=== PATIENT | male | born 1960 | race Caucasian/White ===

== ENCOUNTER → 2018-08-01 08:56 | Outpatient (CLI) | payer BC, SELFPAY ==
[2018-08-01 09:43] LABS: Hemoglobin A1C 5.5 % (0.0-7.0)
[2018-08-01 09:44] LABS: Basophils % 0.7 % (0.1-2.0); Eosinophils # 0.3 K/mm3 (0.0-0.4); Eosinophils % 6.7 % (0.1-12.0); Hematocrit 43.8 % (42.0-52.0); Hemoglobin 14.7 g/dL (14.1-18.0); Lymphocytes # 1.5 K/mm3 (0.7-4.5); Lymphocytes % 29.4 K/mm3 (10-50); Mean Corpuscular HGB Conc 33.5 g/dL (31.8-35.4); Mean Corpuscular Hemoglobin 29.4 pg (27.0-31.2); Mean Corpuscular Volume 87.8 fl (80-94); Mean Platelet Volume 6.9 fl (7.4-10.4); Monocytes # 0.4 K/mm3 (0.1-1.0); Monocytes % 6.9 % (1.7-9.3); Neutrophils # 2.8 K/mm3 (1.8-7.8); Neutrophils % 56.3 % (37.0-80.0); Platelet Count 188 K/mm3 (142-424); Red Blood Count 4.99 M/mm3 (4.60-6.20); Red Cell Distribution Width 12.8 % (11.5-17.5)
[2018-08-01 10:52] LABS: Alanine Aminotransferase 30 U/L (12-78); Albumin/Globulin Ratio 1.3 (1.1-1.8); Alkaline Phosphatase 63 U/L (46-116); Anion Gap 10.3 mEq/L (5-15); Aspartate Amino Transferase 18 U/L (15-37); Bilirubin,Total 1.2 mg/dL (0.2-1.0); Blood Urea Nitrogen 13 mg/dL (7-18); Carbon Dioxide 29 mmol/L (21.0-32.0); Chloride 106 mmol/L (98-107); Cholesterol 210 mg/dL (140-200); Creatinine,Serum 1.01 mg/dL (0.70-1.30); Estimated Glomerular Filt Rate 76 ml/min (>60); GFR (African American) 92 ML/MIN (>60); Glucose 98 mg/dL (74-106); HDL Cholesterol 53 mg/dL (27-67); LDL Cholesterol 139 mg/dL (0-130); Potassium 4.3 mmoL/L (3.5-5.1); Prostate Specific Ag Screen 1.4 ng/mL (0.0-4.0); Sodium 141 mmol/L (136-145); Thyroid Stimulating Hormone 1.32 uIU/ml (0.358-3.740); Triglycerides 92 mg/dL (30-200); VLDL Cholesterol 18 mg/dL (0-40)
[2018-08-02 19:09] LABS: Testosterone,Total 366 ng/dL (264-916); Vitamin B12 1150 pg/mL (232-1245)
[2018-08-04 15:25] LABS: Vitamin D 25 Hydroxy 30.7 ng/mL (30.0-100.0)
== END ==
PROVIDERS: PCP Internal Medicine Adolescent Medicine; Visit Provider Nurse Practitioner Family
DX: Z00.00 Encounter for general adult medical examination without abnormal findings (principal); I10 Essential (primary) hypertension; R53.81 Other malaise; E01.0 Iodine-deficiency related diffuse (endemic) goiter; E04.1 Nontoxic single thyroid nodule
CPT/HCPCS: 36415; 80053; 80061; 82607; 82652; 83036; 84403; 84443; 85025; G0103

== ENCOUNTER → 2018-08-11 15:21 | Outpatient (CLI) | payer BC, SELFPAY ==
--- NOTE | 2018-08-11 15:28 | US_ITS ---
US thyroid HISTORY: Follow-up thyroid nodule ITS.REASON: THYROID NODULE ORDERING PHYSICIAN: Alondra Lopez PATIENT AGE: 57 years Comparison: 07/22/2017 FINDINGS: Right lobe: 4.2 x 1.7 x 1.8 cm There is a 4.5 x 3 mm nodule along the posterior aspect of the right lobe of the thyroid gland not significant changed. In the lower pole there is a 3 mm hypoechoic nodule not readily apparent previously. An additional 4 mm hypoechoic nodules present superiorly not readily apparent on the previous exam. Left lobe: 4.7 x 1.4 x 1.7 cm. Homogeneous echogenicity IMPRESSION: Mildly enlarged thyroid gland with 3 small nodules of the right lobe which have low level of suspicion for malignancy. 2 of the nodules are however new therefore, recommend 6 month follow-up to confirm short-term stability
== END ==
PROVIDERS: Family Provider Internal Medicine Adolescent Medicine; PCP Internal Medicine Adolescent Medicine; Visit Provider Nurse Practitioner Family
DX: E04.1 Nontoxic single thyroid nodule (principal)
CPT/HCPCS: 76536

== ENCOUNTER → 2018-08-17 16:36 | Outpatient (CLI) | payer BC, SELFPAY ==
[2018-08-17 18:40] LABS: T4 (Thyroxine) 7.9 ug/dl (4.7-13.3); Thyroid Stimulating Hormone 1.19 uIU/ml (0.358-3.740); Triiodothryronine (T3) Uptake 38 % (31-39)
[2018-08-21 18:26] LABS: Thyroid Peroxidase Antibodies 11 IU/mL (0-34)
[2018-08-21 18:32] LABS: Calcitonin <2.0 pg/mL (0.0-8.4); Thyroid Stimulating Immunoglob <0.10 IU/L (0.00-0.55)
== END ==
PROVIDERS: Family Provider Internal Medicine Adolescent Medicine; PCP Internal Medicine Adolescent Medicine; Visit Provider Otolaryngology
DX: E04.9 Nontoxic goiter, unspecified (principal)
CPT/HCPCS: 36415; 82308; 84436; 84443; 84445; 84479; 86376

== ENCOUNTER → 2019-03-17 15:18 | Outpatient (CLI) | payer BC, SELFPAY ==
--- NOTE | 2019-03-17 15:22 | US_ITS ---
US thyroid HISTORY: Follow-up thyroid nodules ITS.REASON: thyroid nodules ORDERING PHYSICIAN: Edd Lee MD PATIENT AGE: 58 years Comparison: 08/11/2018 FINDINGS: Right lobe is 3.9 x 1.6 x 1.4 cm. The left lobe is 4.5 x 1.4 x 1.4 cm. The isthmus is unremarkable. There is a hypoechoic nodule along the posterior aspect of the right lobe at 5 mm unchanged. An additional 3 mm hypoechoic nodule is present in the lower pole unchanged. Previously there was a isoechoic nodule superiorly on the right not identified on today's exam Left lobe has an unremarkable appearance. IMPRESSION:. There are small nodules on the right which are unchanged. There is low level of suspicion for malignancy.
== END ==
PROVIDERS: PCP Internal Medicine Adolescent Medicine; Visit Provider Otolaryngology
DX: E04.9 Nontoxic goiter, unspecified (principal)
CPT/HCPCS: 76536

== ENCOUNTER → 2020-01-01 09:00 | Outpatient (CLI) | payer BC, SELFPAY ==
[2020-01-01 09:29] LABS: Basophils # 0.1 K/mm3 (0-0.2); Basophils % 0.9 % (0.1-2.0); Eosinophils # 0.4 K/mm3 (0.0-0.4); Eosinophils % 7.6 % (0.1-12.0); Hematocrit 42.4 % (42.0-52.0); Hemoglobin 13.9 g/dL (14.1-18.0); Lymphocytes # 1.7 K/mm3 (0.7-4.5); Mean Corpuscular HGB Conc 32.8 g/dL (31.8-35.4); Mean Corpuscular Hemoglobin 28.4 pg (27.0-31.2); Mean Corpuscular Volume 86.6 fl (80-94); Monocytes # 0.4 K/mm3 (0.1-1.0); Monocytes % 6.9 % (1.7-9.3); Neutrophils # 2.6 K/mm3 (1.8-7.8); Neutrophils % 50.6 % (37.0-80.0); Platelet Count 179 K/mm3 (142-424); Red Cell Distribution Width 12.9 % (11.5-17.5); White Blood Count 5.1 K/mm3 (4.8-10.8)
[2020-01-01 10:02] LABS: Alanine Aminotransferase 23 U/L (12-78); Albumin Level 3.8 gm/dL (3.4-5.0); Albumin/Globulin Ratio 1.5 (1.1-1.8); Alkaline Phosphatase 57 U/L (46-116); Anion Gap 12.2 mEq/L (5-15); Aspartate Amino Transferase 15 U/L (15-37); Bilirubin,Total 1.2 mg/dL (0.2-1.0); Blood Urea Nitrogen 17 mg/dL (7-18); Calcium 8.5 mg/dL (8.5-10.1); Carbon Dioxide 28 mmol/L (21.0-32.0); Chloride 106 mmol/L (98-107); Chol/HDL Ratio 4.9 (1-3.5); Cholesterol 200 mg/dL (140-200); Creatinine,Serum 0.95 mg/dL (0.70-1.30); Estimated Glomerular Filt Rate 81 ml/min (>60); Free Thyroxine Index 1.9 ug/dL (5.93-13.13); GFR (African American) 99 ML/MIN (>60); Globulin 2.5 gm/dl (1.3-3.2); Glucose 95 mg/dL (74-106); HDL Cholesterol 41 mg/dL (27-67); LDL Cholesterol 137 mg/dL (0-130); Potassium 4.2 mmoL/L (3.5-5.1); Sodium 142 mmol/L (136-145); T4 (Thyroxine) 5.2 ug/dl (4.7-13.3); Total Protein,Serum 6.3 gm/dL (6.4-8.2); Triglycerides 109 mg/dL (30-200); Triiodothryronine (T3) Uptake 37 % (31-39); VLDL Cholesterol 22 mg/dL (0-40)
== END ==
PROVIDERS: Visit Provider Internal Medicine Adolescent Medicine
DX: E78.5 Hyperlipidemia, unspecified (principal); E04.1 Nontoxic single thyroid nodule
CPT/HCPCS: 36415; 80053; 80061; 84436; 84443; 84479; 85025

== ENCOUNTER → 2021-02-20 13:38 | Outpatient (CLI) | payer BC, SELFPAY | PROVIDERS: PCP Internal Medicine Adolescent Medicine; Visit Provider Internal Medicine Adolescent Medicine | DX: G47.33 Obstructive sleep apnea (adult) (pediatric) (principal); R06.83 Snoring | CPT/HCPCS: G0399 ==

== ENCOUNTER → 2021-08-09 10:00 | Outpatient (CLI) | payer BC, SELFPAY ==
[2021-08-09 10:12] LABS: Basophils # 0.1 K/mm3 (0-0.2); Basophils % 1.2 % (0.1-2.0); Eosinophils # 0.4 K/mm3 (0.0-0.4); Eosinophils % 6.7 % (0.1-12.0); Hematocrit 46.2 % (42.0-52.0); Hemoglobin 15.5 g/dL (14.1-18.0); Lymphocytes % 30.7 % (10-50); Mean Corpuscular HGB Conc 33.5 g/dL (31.8-35.4); Mean Corpuscular Volume 89.5 fl (80-94); Monocytes # 0.6 K/mm3 (0.1-1.0); Monocytes % 8.4 % (1.7-9.3); Neutrophils # 3.5 K/mm3 (1.8-7.8); Platelet Count 222 K/mm3 (142-424); Red Blood Count 5.17 M/mm3 (4.60-6.20); Red Cell Distribution Width 13.8 % (11.5-17.5); White Blood Count 6.6 K/mm3 (4.8-10.8)
[2021-08-09 11:49] LABS: Alanine Aminotransferase 112 U/L (12-78); Albumin Level 4.5 g/dl (3.5-5.0); Albumin/Globulin Ratio 1.5 (1.1-1.8); Alkaline Phosphatase 70 U/L (38-126); Aspartate Amino Transferase 49 U/L (17-59); Bilirubin,Total 1.5 mg/dl (0.2-1.3); Blood Urea Nitrogen 13 mg/dl (9-20); Calcium 9.6 mg/dl (8.4-10.2); Carbon Dioxide 31 mmol/L (22.0-30.0); Chloride 101 mmol/L (98-107); Chol/HDL Ratio 4.8 (1-3.5); Cholesterol 174 mg/dl (140-200); Estimated Glomerular Filt Rate 86 ml/min (>60); GFR (African American) 105 ML/MIN (>60); Glucose 96 mg/dl (74-100); HDL Cholesterol 36 mg/dl (40-60); Sodium 141 mmol/L (136-145); Total Protein,Serum 7.5 g/dl (6.3-8.2); Triglycerides 220 mg/dl (30-150); VLDL Cholesterol 44 mg/dL (0-40)
[2021-08-09 12:00] LABS: Direct LDL Cholesterol 100.03 mg/dL (100-129)
[2021-08-09 12:06] LABS: Triiodothryronine (T3) Uptake 34 % (23.5-40.5)
[2021-08-09 12:07] LABS: Free Thyroxine Index 2.5 ug/dL (5.93-13.13); T4 (Thyroxine) 7.4 ug/dl (5.53-11.0)
[2021-08-09 12:20] LABS: Thyroid Stimulating Hormone 1.37 uIU/mL (0.465-4.68)
== END ==
PROVIDERS: Visit Provider Internal Medicine Adolescent Medicine
DX: E04.1 Nontoxic single thyroid nodule (principal); E78.5 Hyperlipidemia, unspecified
CPT/HCPCS: 36415; 80053; 80061; 84436; 84443; 84479; 85025

== ENCOUNTER → 2021-08-21 10:50 | Outpatient (CLI) | payer BC, SELFPAY ==
--- NOTE | 2021-08-21 10:59 | US_ITS ---
PROCEDURE: US THYROID CLINICAL INDICATION: THYROID NODULE COMPARISON: US THY US thyroid from 03/17/2019 FINDINGS: Right lobe: 3.8 x 1.6 x 2.5 cm. 3 mm cyst mid polar region. 5 mm hypoechoic nodule in the mid polar region posteriorly unchanged. Well-circumscribed no calcifications. 4 mm slightly hypoechoic nodule lower pole unchanged Left lobe: 4.5 x 1.4 x 1.6 cm. 3 mm hypoechoic nodule upper pole unchanged. 2 mm mixed nodule lower pole unchanged. Isthmus: Unremarkable Additional findings: IMPRESSION: Overall no change in the benign-appearing thyroid nodules. Dictated by: Buster Meneses MD 08/21/2021 17:42 Buster Meneses MD in [place] 08/21/2021 17:42
== END ==
PROVIDERS: PCP Internal Medicine Adolescent Medicine; Visit Provider Internal Medicine Adolescent Medicine
DX: E04.1 Nontoxic single thyroid nodule (principal)
CPT/HCPCS: 76536

== ENCOUNTER 2022-04-18 11:54 | Emergency (ER) | payer BC, SELFPAY ==
[2022-04-18 11:54] VITALS: BP 175/118; PULSE 68; RESP 16; TEMP 36.8; O2SAT 97; BMI 25.8
--- NOTE | 2022-04-18 11:57 | PC.NURSE ---
FELY Proctor at BS
--- NOTE | 2022-04-18 11:59 | PC.NURSE ---
ED MD at
--- NOTE | 2022-04-18 12:02 | XR_ITS ---
FINAL REPORT CLINICAL HISTORY: trauma, Kicked in nose by cow FINDINGS: NASAL BONES 3 views of the nasal bones were performed. There is a nondisplaced nasal fracture. Bony alignment appears normal. The visualized sinuses are clear. IMPRESSION: Nondisplaced nasal fracture. Reviewed, Interpreted and Dictated by Rubin Drake III, MD Transcribed by Cyndie Torres Authenticated by Rubin Drake III, MD on 04/18/2022 01:17:58 PM [facility]
--- NOTE | 2022-04-18 12:02 | HMH.EDGENADL ---
ED Disposition Clinical Impression: Nasal laceration Qualifiers: Encounter type: initial encounter Qualified Code(s): S01.21XA - Laceration without foreign body of nose, initial encounter Nasal bone fracture Qualifiers: Encounter type: initial encounter Fracture type: closed Qualified Code(s): S02.2XXA - Fracture of nasal bones, initial encounter for closed fracture Disposition: Home, Self-Care Condition on Discharge: Good Instructions: DI for Nose Fracture, DI for Laceration Repair Additional Instructions: follow up pcp as needed, retur for worse Prescriptions: cephALEXin [cephALEXin 500mg capsule*] 500 mg PO Q8 #21 cap Transmission Status: Received by [id number] Referrals: Jerry Coronado MD [Physician] - - Critical Care Critical Care Time: No Attestation: On , the high probability of a clinically significant, sudden or life threatening deterioration of the following system(s) required my full and direct attention, intervention and personal management. The time I documented below is in addition to time spent performing reported procedures but includes the following listed in this critical care notation. Medical Decision Making - Medical Records Medical records reviewed: Yes: I reviewed the patient's medical records. - Rod Inquiry Pt receiving controlled substance: No Vital Signs: 04/18/22 11:54 Temperature 98.3 F Temperature Source Oral Pulse Rate [Right Radial] 68 Respiratory Rate 16 Blood Pressure [Right Arm] 175/118 H Blood Pressure Mean [Right Arm] 137 Blood Pressure Source [Right Arm] Automatic Cuff Blood Pressure Position [Right Arm] Sitting 02 Sat by Pulse Oximetry 97 Oxygen Delivery Method Room Air Orders (Tests/Meds): ED MEDICATIONS Discontinued Medications Generic Name Dose Route Start Last Admin Trade Name Gregorio PRN Reason Stop Dose Admin Acetaminophen 1,000 mg 04/18/22 12:23 04/18/22 12:27 Acetaminophen 500mg Tab PO 04/18/22 12:24 1,000 mg ONCE ONE Administration ORDERS Category Date Time Status Nasal bones XR minimum 3 views [XR nasal bones min 3V] Exams 04/18/22 12:02 Taken Stat Medical Decision Narrative: reeval, bp elev, only c/o nasal bridge pain, tylenolordered General Adult HPI - General Stated complaint: AO 04/18 facial injury Time Seen by Provider: 04/18/22 12:02 - History of Present Illness HPI narrative: struck by fence to nose , lac, sea captain, 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 Location: face Radiation: non-radiation Severity: mild Consistency: constant Exacerbating factors: none Associated symptoms: denies other symptoms - Related Data Home Medications Medication Instructions Recorded Confirmed amlodipine 5 mg tablet 5 mg PO BID 08/17/18 04/12/19 Previous Rx's Medication Instructions Recorded cephALEXin [cephALEXin 500mg 500 mg PO Q8 #21 cap 04/18/22 capsule*] Allergies Allergy/AdvReac Type Severity Reaction Status Date / Time No Known Allergies Allergy Verified 04/12/19 15:50 [facility] History - Hepatitis A Screen Attestation statement:: This patient has been screened for Hepatitis A risk factors. Medical History: Reports:: Gastroesophageal Reflux Disease(GERD), Hypertension Denies:: Diabetes Mellitus Type 1, Diabetes Mellitus Type 2, Internal Pacemaker, Lung Disease, Seizures Laterality Cases: Bilateral: Other Other Surgeries: Yes: Other (Right RCR, Tongue). No: Pacemaker Amputation: No Fractures: No - Social History Smoking Status: Never smoker Alcohol Intake: never Occupational Status: employed Family Hx:: Diabetes, Hypertension, Cancer, Thyroid Disorder ROS Obtained: Yes All systems reviewed & no additional complaints Physical Exam - General General appearance: alert, in no apparent distress - Head Head exam: atraumatic, normocephalic, normal inspection - Eye Eye exam: Present: normal appearance, PERRL, EOMI - ENT ENT exam: Present: other (superior nasal brige lac
--- NOTE | 2022-04-18 12:07 | PC.NURSE ---
patient ambulatory to radiology with copier technician
--- NOTE | 2022-04-18 12:07 | PC.NURSE ---
Pt to rad
--- NOTE | 2022-04-18 12:11 | INFXCTL.NOTE ---
patient ambulatory back from Radiology with hitch technician without complications
--- NOTE | 2022-04-18 12:28 | PC.NURSE ---
FELY Proctor at BS
[2022-04-18 12:33] VITALS: BP 171/109; PULSE 71; RESP 18; TEMP 36.8; O2SAT 95
== END 2022-04-18 12:34 | disposition home or self-care (01) ==
PROVIDERS: Emergency Provider Emergency Medicine; PCP Internal Medicine Adolescent Medicine
DX: S01.21XA Laceration without foreign body of nose, initial encounter (principal); S02.2XXA Fracture of nasal bones, initial encounter for closed fracture; K21.9 Gastro-esophageal reflux disease without esophagitis; E78.5 Hyperlipidemia, unspecified; Z82.49 Family history of ischemic heart disease and other diseases of the circulatory system; Z80.9 Family history of malignant neoplasm, unspecified; Z83.3 Family history of diabetes mellitus; Z83.438 Family history of other disorder of lipoprotein metabolism and other lipidemia; W22.8XXA Striking against or struck by other objects, initial encounter
CPT/HCPCS: 12011; G0168; 70160; 99283

== ENCOUNTER → 2023-01-24 14:18 | Outpatient (CLI) | payer BC, SELFPAY ==
--- NOTE | 2023-01-24 14:28 | US_ITS ---
FINAL REPORT TECHNIQUE: Limited sonographic images of the thyroid were obtained. CLINICAL HISTORY: .thyroid nodules COMPARISON: 08/21/2021 FINDINGS: The right lobe of the thyroid measures 4.1 x 1.4 x 2.3 cm. The left lobe of the thyroid measures 4.5 x 1.6 x 1.7 cm. The isthmus measures 0.27 cm. Multiple small nodules are identified. In the anterior right thyroid lobe is a 4 x 4 x 3 mm solid, isoechoic nodule which is stable consistent with TI-RADS category 4. There is a 2nd nodule in the right posterior lobe measuring 5 x 4 x 4 mm which is solid and isoechoic, also stable consistent with TI-RADS category 4. Other less than 5 mm nodules have not significantly changed. IMPRESSION: Stable small nodules as detailed above. Reviewed, Interpreted and Dictated by Rubin Drake III, MD Transcribed by Adore Shankar Authenticated and [facility]
== END ==
LOC: RAD 14:22
PROVIDERS: PCP Internal Medicine Adolescent Medicine; Visit Provider Internal Medicine Adolescent Medicine
DX: E04.1 Nontoxic single thyroid nodule (principal)
CPT/HCPCS: 76536

== ENCOUNTER 2023-01-30 09:28 | Day surgery (SDC) | payer BC, SELFPAY ==
[2023-01-09 12:24] VITALS: BMI 28.8
[2023-01-30 09:43] VITALS: BP 173/106; PULSE 81; RESP 16; TEMP 36.7; O2SAT 95
--- NOTE | 2023-01-30 09:58 | EXP.ANES.CKL ---
[facility] Disclaimer: The information contained in this section may have been updated after the patient was seen, as this information can be updated by other users. Medical History History of gastroesophageal reflux (GERD) Hypertension Surgical History History of shoulder surgery Family History Other No significant family history Social History Smoking Status: Never smoker alcohol intake: never substance use type: denies use current occupational status: employed Travel in the last 8 weeks: None household members: spouse housing: house marital status: caffeine: Yes special jeanna needs: No agree to transfusion: No do you feel safe at home: Yes victim of physical abuse: No victim of emotional abuse: No victim of sexual abuse: No would you like helpful sources: No [facility] Anesthesia Checklist Patient Identification Patient Identification: Verbal (Name & ) Structural Data Admitted From: Home Planned Operative Procedure/s: colonoscopy Consent for Planned Operative Procedure(s) Verified: Yes Additional verifications Anesthesia Reactions: No Airway Assessment C-Spine Mobility Assessed: Yes TMJ Mobility Assessed: Yes Dentition: Good Dentition Neurological Assessment Level of Consciousness: Awake, Alert and Appropriate Anesthesia Plan Anesthesia Risk discussed: Yes Anesthesia Plan: Verified ASA Class: II Anesthesia Type: MAC
[2023-01-30 10:01] VITALS: O2SAT 95
--- NOTE | 2023-01-30 10:14 | HMH.SCOPE ---
Procedure: Date: 01/30/23 Patient Date of :: 1960 Procedure Performed:: Screening colonoscopy Indications:: Family history of colon cancer Personal history of colon polyps Performing Provider:: Donell Palm MD Referring Provider:: Edgardo Alas MD Sedation:: Propofol Procedure:: After placing the patient in the left lateral decubitus position, the colonoscopy was gently inserted into the rectum and under direct visualization advanced to the cecum which was identified by transillumination in the right lower quadrant, identification of the ileocecal valve, appendiceal orifice, and cecal strap. Color, texture, mucosa, and anatomy of the colon were carefully examined with the scope. Findings:: Anal canal: normal Rectum: normal Sigmoid colon: normal without polyps or inflammatory changes Descending colon: normal without polyps or inflammatory changes Splenic flexure: normal Transverse colon: normal without polyps or inflammatory changes Hepatic flexure: normal Ascending colon: normal without polyps or inflammatory changes Cecum: normal Terminal ileum: not visualized Impression: Normal colonoscopy Recommendations:: Follow up examination in about FIVE years or so, sooner if clinically indicated Complications:: None Estimated blood obtained (mL): 0
[2023-01-30 10:26] VITALS: BP 142/90; PULSE 79; RESP 16; TEMP 36.5; O2SAT 98
[2023-01-30 10:36] VITALS: BP 135/87; PULSE 72; RESP 17; O2SAT 97
[2023-01-30 10:46] VITALS: BP 149/98; PULSE 78; RESP 18; TEMP 36.5; O2SAT 98
== END 2023-01-30 10:46 | disposition home or self-care (01) ==
PROVIDERS: PCP Internal Medicine Adolescent Medicine; Visit Provider Internal Medicine Gastroenterology
PROC: 0DJD8ZZ Inspection of Lower Intestinal Tract, Via Natural or Artificial Opening Endoscopic (ICD-10-PCS; CPT 45378; principal; 2023-01-30 10:30)
DX: Z12.11 Encounter for screening for malignant neoplasm of colon (principal); Z86.010 Personal history of colon polyps; Z80.0 Family history of malignant neoplasm of digestive organs; Z79.899 Other long term (current) drug therapy
CPT/HCPCS: 45378

== ENCOUNTER → 2023-11-12 10:03 | Outpatient (CLI) | payer BC, SELFPAY ==
--- NOTE | 2023-11-12 10:19 | XR_ITS ---
FINAL REPORT TECHNIQUE: Chest PA & Lateral CLINICAL HISTORY: PERSISTENT COUGH-- hypertension on meds COMPARISON: None FINDINGS: 2 views of the chest were performed. The heart size is normal. The mediastinum is within normal limits. There is no acute cardiopulmonary process. There are no pleural effusions. There is no pneumothorax. The bony thorax appears intact. IMPRESSION: No acute cardiopulmonary process. Reviewed, Interpreted and Dictated by Sarath Mo MD Transcribed by Cuca Ma Authenticated and [facility]
== END ==
LOC: RAD 10:06
PROVIDERS: PCP Internal Medicine Adolescent Medicine; Visit Provider Internal Medicine Adolescent Medicine
DX: R05.3 Chronic cough (principal)
CPT/HCPCS: 71046